=== PATIENT | female | born 1955 | race Caucasian/White ===

== ENCOUNTER 2023-03-30 07:05 | Outpatient (OUT) | payer MEDICARE, OTHER, SELFPAY ==
[2023-03-30 07:26] LABS: Basophils Absolute Auto 0.1 10^3/uL (0.0-0.1); Basophils Percent Auto 1.4 % (0.2-2.0); Eosinophils Absolute Auto 0.3 10^3/uL (0.0-0.7); Eosinophils Percent Auto 6.4 % (0.9-7.0); Hematocrit 41.9 % (36.0-48.0); Immature Granulocytes Abs Auto 0.01 10^3/uL (0.00-0.03); Immature Granulocytes Pct Auto 0.2 % (0.0-0.5); Lymphocytes Absolute Auto 1.9 10^3/uL (1.2-3.8); Lymphocytes Percent Auto 38.6 % (20.5-60.0); Mean Corpuscular HGB Conc 33.4 g/dL (29.9-35.2); Mean Corpuscular Hemoglobin 30.5 pg (26.7-34.0); Mean Corpuscular Volume 91.3 fL (81.0-99.0); Mean Platelet Volume 9.6 fL (9.5-13.5); Monocytes Absolute Auto 0.4 10^3/uL (0.3-0.8); Monocytes Percent Auto 8.5 % (1.7-12.0); Neutrophils Absolute Auto 2.3 10^3/uL (1.4-6.5); Neutrophils Percent Auto 44.9 % (43.0-75.0); Platelet Count 255 10^3/uL (150-450); Red Blood Count 4.59 10^6/uL (4.20-5.40); Red Cell Distribution Width 13.6 % (11.0-15.0)
[2023-03-30 09:14] LABS: Microalbumin Urine Random 1.7 mg/dL (<=30.0)
[2023-03-30 09:33] LABS: Alanine Aminotransferase 41 U/L (14-59); Albumin Globulin Ratio 1.2; Albumin Level 4.3 g/dL (3.4-5.0); Alkaline Phosphatase 73 U/L (46-116); Anion Gap 14.3; Aspartate Amino Transferase 21 U/L (15-37); BUN Creatinine Ratio 14.6; Bilirubin Total 0.7 mg/dL (0.2-1.0); Carbon Dioxide 26.2 mmol/L (21.0-32.0); Chloride 103 mmol/L (98-107); Cholesterol 143 mg/dL (<=200); Estimated GFR (African America >60 (>=60); Estimated GFR (Non-African Ame >60 (>=60); Globulin 3.5 g/dL; Glucose 108 mg/dL (74-106); HDL Cholesterol 47 mg/dL (40-60); LDL Cholesterol Calculated 71.2 mg/dL; Potassium 4.5 mmol/L (3.5-5.1); Sodium 139 mmol/L (136-145); Total Protein 7.8 g/dL (6.4-8.2); Triglycerides 124 mg/dL (<=150); VLDL CHOLESTEROL 24.8 mg/dL
== END 2023-03-30 07:06 | disposition home or self-care (01) ==
LOC: LAB 07:11
PROVIDERS: PCP Family Medicine; Visit Provider Family Medicine
DX: I10 Essential (primary) hypertension (principal); E78.2 Mixed hyperlipidemia
CPT/HCPCS: 36415; 80053; 80061; 82043; 85025

== ENCOUNTER 2024-04-02 07:11 | Outpatient (OUT) | payer MEDICARE, OTHER, SELFPAY ==
[2024-04-02 07:40] LABS: Basophils Absolute Auto 0.1 10^3/uL (0.0-0.1); Basophils Percent Auto 1.3 % (0.2-2.0); Eosinophils Absolute Auto 0.3 10^3/uL (0.0-0.7); Eosinophils Percent Auto 6.9 % (0.9-7.0); Hematocrit 42.3 % (36.0-48.0); Hemoglobin 13.7 g/dL (12.0-16.0); Immature Granulocytes Abs Auto 0.01 10^3/uL (0.00-0.03); Immature Granulocytes Pct Auto 0.2 % (0.0-0.5); Lymphocytes Absolute Auto 1.5 10^3/uL (1.2-3.8); Mean Corpuscular HGB Conc 32.4 g/dL (29.9-35.2); Mean Corpuscular Hemoglobin 30.2 pg (26.7-34.0); Mean Corpuscular Volume 93.4 fL (81.0-99.0); Mean Platelet Volume 9.9 fL (9.5-13.5); Monocytes Absolute Auto 0.4 10^3/uL (0.3-0.8); Monocytes Percent Auto 7.9 % (1.7-12.0); Neutrophils Absolute Auto 2.4 10^3/uL (1.4-6.5); Neutrophils Percent Auto 51.7 % (43.0-75.0); Platelet Count 253 10^3/uL (150-450); Red Blood Count 4.53 10^6/uL (4.20-5.40); White Blood Count 4.7 10^3/uL (4.0-11.0)
[2024-04-02 08:48] LABS: Alanine Aminotransferase 44 U/L (14-59); Albumin Globulin Ratio 1.4; Alkaline Phosphatase 74 U/L (46-116); Anion Gap 12.9; Aspartate Amino Transferase 25 U/L (15-37); BUN Creatinine Ratio 12.8; Bilirubin Total 0.8 mg/dL (0.2-1.0); Calcium 8.8 mg/dL (8.5-10.1); Carbon Dioxide 26.6 mmol/L (21.0-32.0); Chloride 106 mmol/L (98-107); Chol HDL Ratio 3.2; Cholesterol 149 mg/dL (<=200); Estimated GFR (African America >60 (>=60); Estimated GFR (Non-African Ame 59 (>=60); Globulin 2.8 g/dL; Glucose 106 mg/dL (74-106); HDL Cholesterol 46 mg/dL (40-60); Potassium 4.5 mmol/L (3.5-5.1); Sodium 141 mmol/L (136-145); Total Protein 6.8 g/dL (6.4-8.2); Triglycerides 201 mg/dL (<=150); VLDL CHOLESTEROL 40.2 mg/dL
== END 2024-04-02 07:12 | disposition home or self-care (01) ==
LOC: LAB 07:15
PROVIDERS: PCP Family Medicine; Visit Provider Family Medicine
DX: I25.10 Atherosclerotic heart disease of native coronary artery without angina pectoris (principal); I10 Essential (primary) hypertension; E78.5 Hyperlipidemia, unspecified
CPT/HCPCS: 36415; 80053; 80061; 85025

== ENCOUNTER 2024-08-15 06:55 | Outpatient (OUT) | payer OTHER, SELFPAY ==
--- NOTE | 2024-08-15 07:00 | CA_ITS ---
Patient Name: SHERLEY REAVES MR#: [id number] : 1955 Exam Date: 08/15/2024 Ordering Doctor: LISA ACEVEDO CNP ECHOCARDIOGRAM REPORT PROCEDURE: CA ECHO DOPPLER COMPLETE INDICATIONS: Mitral and aortic valve insufficiency COMPARISON: None. DESCRIPTION: COMPLETE ECHOCARDIOGRAM Real-time transthoracic echocardiography with 2D, M-mode, spectral and color flow Doppler performed. QUALITY: Technical quality was good. LEFT VENTRICLE: Normal chamber size. Normal left ventricular wall thickness. LV EF: Global left ventricular systolic function is assessed but appears mildly reduced; visually estimated ejection fraction is 45 to 50%. No significant wall motion abnormalities DIASTOLIC: Grade I diastolic dysfunction. ATRIAL SEPTUM: Inadequately seen. LEFT ATRIUM: Normal chamber size. RIGHT ATRIUM: Mild dilatation. RIGHT VENTRICLE: Normal chamber size. Normal right ventricular systolic function. TRICUSPID VALVE: Normal mobility and thickness. No stenosis with mild regurgitation. No evidence of pulmonary hypertension. RVSP 24mmHg MITRAL VALVE: Normal mobility and thickness. No evidence of mitral valve stenosis. There is no mitral annular calcification. Mild mitral regurgitation. AORTIC VALVE: Normal trileaflet appearance. No visible sclerosis. Normal leaflet mobility. No evidence of aortic valve stenosis. Trivial aortic regurgitation. AORTIC ROOT: Normal diameter and appearance. PULMONIC VALVE: Normal thickness and mobility. No stenosis. No regurgitation. PERICARDIUM: No evidence of pericardial effusion. IVC: Collapses with inspirations. Normal size. CONCLUSION: 1. Global left ventricular systolic function is difficult to assess but appears mildly reduced; visually estimated ejection fraction is 45 to 50% 2. Normal right ventricular size and systolic function 3. Mild diastolic dysfunction 4. The right atrium is mildly dilated 5. Mild tricuspid regurgitation 6. Mild mitral regurgitation Adult Echocardiography Procedure Report Left Ventricle LVEDD (3.7 - 5.6 cm): 4.50 cm LVESD (2.2 - 4.0 cm): 3.30 cm LVIVS thickness (0.6 - 1.2 cm): 1.00 cm LVPW thickness (0.5 - 1.0 cm): 0.93 cm e': 0.05 m/s E - e': 10.58 LVOT Max Gradient: 2.91 mm[Hg] LVOT Area (cm2): 0.85 m/s Peak Velocity (LVOT): 0.85 m/s Mean Velocity (LVOT): 0.55 m/s LVOT Diameter 2.01 cm Left Atrium LA Volume Index (2D A2C): 30.64 ml/m2 Left Atrium Systolic Dimension: 3.85 cm Mitral Valve MV E to A Ratio: 0.70 Mitral Valve A-Wave Peak Velocity: 0.81 m/s Mitral Valve E-Wave Peak Velocity: 0.57 m/s Right Ventricle RV Internal Diastolic Dimension: 3.48 cm Aorta AO Root Diam: 3.17 cm Ascending Ao Diam: 3.33 cm Aortic Valve AoV Area (Peak Zain): 1.89 cm2, 1.89 cm2 AoV Area (VTI): 1.93 cm2, 1.93 cm2 Peak Velocity(Antegrade Flow): 1.43 m/s Peak Gradient(Antegrade Flow): 8.20 mm[Hg] Mean Velocity(Antegrade Flow): 0.97 m/s Mean Gradient(Antegrade Flow): 4.30 mm[Hg] Velocity Time Integral: 32.79 cm Tricuspid Valve Peak Velocity (Regurgitant Flow): 1.78 m/s, 1.75 m/s, 2.31 m/s Pulmonic Valve Peak Velocity: 0.93 m/s Peak Gradient: 3.58 mm[Hg], 3.36 mm[Hg] Right Atrium Right Atrium Systolic Pressure: 50.70 ml, 50.70 ml Dictated by: Maykel Story M.D. on 08/15/2024 at 10:11 Approved by: Maykel Story M.D. on 08/15/2024 at 10:15
== END 2024-08-15 06:56 | disposition home or self-care (01) ==
LOC: CARD 06:56
PROVIDERS: PCP Family Medicine; Visit Provider Nurse Practitioner Family
DX: I35.1 Nonrheumatic aortic (valve) insufficiency (principal)
CPT/HCPCS: 93306

== ENCOUNTER 2024-10-03 06:56 | Outpatient (OUT) | payer OTHER, SELFPAY ==
--- NOTE | 2024-10-03 | PCN_ITS ---
CARDIAC STRESS TEST Requesting Physician: Procedure Date: 10/03/2024 This was a cardiac stress test performed at the [facility] on 10/03/2024. Informed consent was obtained. The patient was attached to electrocardiographic monitoring. Intravenous line was secured. Resting vital signs were obtained. The patient exercised on the treadmill according to the Kameron protocol for 6 minutes and 49 seconds. The patient reached Stage 3 of the Kameron protocol and achieved 9.4 METS. Resting heart rate was 108 BPM and maximum heart rate was 173 BPM, representing 116% of maximum predicted heart rate. Resting blood pressure was 170/90 and maximum blood pressure 196/98. Cardiolite was injected at peak exercise. The patient then went on to obtain myocardial perfusion imaging. Resting heart rate showed sinus tachycardia with no ischemic ST changes. ECG during and after exercise showed sinus tachycardia with no ischemic ST changes. Rare PVCs were noted. Final ECG was comparable to baseline. SUMMARY OF THE FINDINGS: 1. No evidence of ischemic ST changes seen on treadmill exercise. 2. Resting hypertension and tachycardia and exaggerated blood pressure response to exercise. 3. 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 4. Myocardial perfusion imaging will be reported separately. ACOSTAD
--- NOTE | 2024-10-03 | NM_ITS ---
Patient Name: SHERLEY REAVES MR#: [id number] : 1955 Exam Date: 10/03/2024 Ordering Doctor: LISA ACEVEDO CNP RADIOLOGY REPORT PROCEDURE: NM ADILENE PERF SPECT REST STR COMPARISON: None. INDICATIONS: CORONARY ARTERY DISEASE TECHNIQUE: Exam Description: Stress/Rest one day protocol gated SPECT Rest Imagin.9 mCi Tc-99m Cardiolite IV on 10/03/2024 Stress Imaging 30.6 mCi Tc-99m Cardiolite IV on 10/03/2024 Exercise Protocol: Kameron Heart Rate (bpm): Rest: 108 Max: 173 PMHR: 116 Blood Pressure: Rest: 170/97 Max: 196/98 Exercise Time: Minutes: 6 Seconds: 49 Stage Reached: Stage: 3 Mets 9.4 Symptoms: Rest and peak stress ECG findings were pending and the exercise portion of the study was pending per attending physician Dr. ZHU . For more details, please see separate cardiac stress test report. FINDINGS: QUALITY OF STUDY: Excellent PERFUSION DEFECT: None WALL MOTION: Normal wall motion LV SIZE: 64 mL. TID / TCD: 0.7 LVEF: Calculated EF 70%. SUMMARY: Myocardial perfusion imaging study is normal CONCLUSION: 1. Myocardial perfusion is normal 2. Global left ventricular systolic function is normal 3. No evidence of transient ischemic dilatation Dictated by: Makyel Story M.D. on 10/03/2024 at 14:52 Approved by: Maykel Story M.D. on 10/03/2024 at 14:54
--- OUTSIDE RECORDS SUMMARY | 2024-10-03 06:58 | XMS_ITS | CCD ---
Author Organization [facility] Care Team Providers Care Reserve Officer Name Role Phone PHYSICIAN, DEFAULT Unavailable Unavailable PHYSICIAN, DEFAULT Unavailable Unavailable ALIZA QUIROS Unavailable Unavailable BANDAR, DR ALIZA Galvan Admitting Unavailable BANDAR, DR ALIZA Galvan Primary Care Unavailable BANDAR, DR ALIZA Galvan Attending Unavailable DR MYNOR STORY Consulting Unavailable BANDAR, DR ALIZA Galvan Consulting Unavailable DR ALIZA QUIROS Primary Care Unavailable LISA ACEVEDO Admitting Unavailable LISA ACEVEDO Consulting Unavailable LISA ACEVEDO Attending Unavailable Aliza Quiros Unavailable LISA ACEVEDO Attending Unavailable Allergies Allergy Classification Reported Allergen(s) Allergy Type Date of Onset Reaction(s) Facility (1 source) 48780,00; Translations: [48617,00] Propensity to adverse reactions (disorder) 2 [facility] Repository (2 sources) patient allergy list reviewed by nurse or physicia Propensity to adverse reactions 9 Comment:Done [facility] Other (2 sources) Allergies Reconciled Propensity to adverse reactions Unknown [facility] Other Medications Current Medications Medication Drug Class(es) Dates Sig (Normalized) Sig (Original) Aspir-81 (3 sources) Aspir-81 Active aspirin 81 mg delayed release oral tablet (1 source) Platelet Aggregation Inhibitor, Nonsteroidal Anti-inflammatory Drug Start: 02-14-2024 take 81 mg by mouth once daily Aspirin Active 81 MG PO Daily February 14, 2024 12:00am atorvastatin 20 mg oral tablet (4 sources) HMG-CoA Reductase Inhibitor Start: 02-14-2024 take 20 mg by mouth once daily Atorvastatin Active 20 MG PO Daily February 14, 2024 12:00am take 1 tablet by cata every twenty-four hours Atorvastatin Calcium 20 MG 1 tablet Oral ly Once a day for 90 days Active lisinopril 5 mg oral tablet (4 sources) Angiotensin Converting Enzyme Inhibitor Start: 02-14-2024 take 5 mg by mouth once daily Lisinopril Active 5 MG PO Daily February 14, 2024 12:00am take 1 tablet by cata th every twenty-four hours Lisinopril 5 MG 1 tablet Orally Once a day for 90 days Active metoprolol tartrate 25 mg oral tablet (4 sources) beta-Adrenergic León Start: 02-14-2024 take 25 mg by mouth twice daily Metoprolol Tartrate Active 25 MG PO Twice daily February 14, 2024 12:00am take 1 tablet by cata th every twelve hours Metoprolol Tartrate 25 MG 1 tablet with food Orally Twice a day for 90 days Active Problems Active Problems Problem Classification Problem Date Documented Date Episodic/Chronic Coronary atherosclerosis and other heart disease (13 sources) Atherosclerotic heart disease of [place] coronary artery without angina pectoris; Translations: [Atherosclerosis of coronary artery without angina pectoris] Onset: 09-11-2013 Chronic Disorders of lipid metabolism (11 sources) Mixed hyperlipidemia; Translations: [Mixed hyperlipidemia] Chronic Essential hypertension (6 sources) Benign hypertension; Translations: [Essential (primary) hypertension] Chronic Heart valve disorders (2 sources) Nonrheumatic aortic (valve) insufficiency; Translations: [Nonrheumatic aortic (valve) insufficiency] Onset: 10-04-2023 Chronic Other circulatory disease (5 sources) Elevated blood-pressure reading without diagnosis of hypertension; Translations: [Elevated blood-pressure reading, without diagnosis of hypertension] Episodic Other nutritional; endocrine; and metabolic disorders (2 sources) Body mass index 25-29 - overweight; Translations: [Body mass index (BMI) 26.0-26.9, adult] Episodic Other screening for suspected conditions (not mental disorders or infectious disease) (6 sources) Encounter for screening mammogram for malignant neoplasm of breast; Translations: [Encounter for screening for malignant neoplasm of colon] Onset: 01-20-2015 Episodic Residual codes; unclassified (2 sources) Family history of diabetes mellitus; Translations: [Family history of diabetes mellitus] Episodic Spondylosis; intervertebral disc disorders; other back problems (5 sources) Low back pain; Translations: [Lumbar pain] Episodic Past or Other Problems Problem Classification Problem Date Documented Da te Episodic/Chronic Inflammation; infection of eye (except that caused by tuberculosis or sexually transmitteddisease) (2 sources) Iridocyclitis; Translations: [Unspecified iridocyclitis] Onset: 09-11-2013 Episodic Other skin disorders (2 sources) Inflamed seborrheic keratosis; Translations: [Inflamed seborrheic keratosis] Onset: 09-11-2013 Episodic Results Test Name Value Interpretation Reference Range Facil ity 36on 09-20-2024 36 Regarding echo result from 08/15/2024: Lisa Acevedo, NIMA Apodaca MA Please let her know her ECHO showed a mild reduction in the pumping function of her heart. Would like to order a stress test to check the blood flow to her heart to make sure this isn't causing it. If she can do a treadmill nuclear that would be ideal, if not, then can do lexiscan. Follow-up with Dr. Story or myself after her stress test. Thanks! Spoke with patient and informed her of message per Sherie. She agrees to have nuclear treadmill stress test. Order faxed to [facility]. I asked patient to call me to reschedule her apt with Dr. Story if stress test cannot be completed prior to that. She verbalized understanding. [facility] Office Visiton 10-04-2023 Follow-up visit [id number] Sherley Arteaga 1955 F Date Provider Department Center 10/04/2023 LISA ESCOBAR RAE[facility] Family History Problem Relation Age of Onset Coronary artery disease Mother Family Status - Relation Status Age at Mother Level of Service:00176 NM OFFICE/OUTPATIENT ESTABLISHED LOW MDM 20 MIN Reason for Visit and Comments: Coronary Artery Disease [187] Hypertension [129247] Hyperlipidemia [182] [facility] CBC AUTO DIFFon 04-02-2022 BASO # 0.1 103/ul Normal 0.0-0.1 [facility] Comment on above: Performed By: #### C BC #### [facility] [address] [address] [address] Berenice Sanders Basophils/100 WBC (Bld) 1.6 % Normal 0.2-2.0 [facility] Comment on above: Performed By: #### C BC #### [facility] [address] [place] [address] Dr. Berenice Sanders EO # 0.2 103/ul Normal 0.0-0.7 [facility] Comment on above: Performed By: #### C BC #### [facility] [address] [place] [address] Dr. Berenice Sanders Eosinophils/100 WBC (Bld) 5.1 % Normal 0.9-7.0 [facility] Comment on above: Performed By: #### C BC #### [facility] [address] [place] [address] Dr. Berenice Sanders Erythrocyte distribution width (RBC) [Ratio] 12.9 % Normal 11.0-15.0 [facility] Comment on above: Performed By: #### C BC #### [facility] [address] [place] [address] Dr. Berenice Sanders Hematocrit (Bld) [Volume fraction] 41.7 % Normal 36.0-48.0 [facility] Comment on above: Performed By: #### C BC #### [facility] [address] [place] [address] Dr. Berenice Sanders Hemoglobin (Bld) [Mass/Vol] 13.5 g/dL Normal 12.0-16.0 [facility] Comment on above: Performed By: #### C BC #### [facility] [address] [place] [address] Dr. Berenice Sanders IG # 0.01 10e3/ul Normal 0.00-0.03 [facility] Comment on above: Performed By: #### C BC #### [facility] [address] [place] [address] Dr. Berenice Sanders IG % 0.2 % Normal 0.0-0.5 [facility] Comment on above: Performed By: #### C BC #### [facility] [address] [place] [address] Dr. Berenice Sanders LYMPH # 1.9 103/ul Normal 1.2-3.8 [facility] Comment on above: Performed By: #### C BC #### [facility] [address] [place] [address] Dr. Berenice Sanders Lymphocytes/100 WBC (Bld) 42.9 % Normal 20.5-60.0 [facility] Comment on above: Performed By: #### C BC #### [facility] [address] [place] [address] Dr. Berenice Sanders MANUAL DIFF REQ NO Normal [facility] Comment on above: Performed By: #### C BC #### [facility] [address] [place] [address] Dr. Berenice Sanders MCH (RBC) [Entitic mass] 30.4 pg Normal 26.7-34.0 [facility] Comment on above: Performed By: #### C BC #### [facility] [address] [place] [address] Dr. Berenice Sanders MCHC (RBC) [Mass/Vol] 32.4 g/dL Normal 29.9-35.2 [facility] Comment on above: Performed By: #### C BC #### [facility] [address] [place] [address] Dr. Berenice Sanders MCV (RBC) [Entitic vol] 93.9 fL Normal 81.0-99.0 [facility] Comment on above: Performed By: #### C BC #### [facility] [address] [place] [address] Dr. Berenice Sanders MONO # 0.4 103/ul Normal 0.3-0.8 [facility] Comment on above: Performed By: #### C BC #### [facility] [address] [place] [address] Dr. Berenice Sanders Monocytes/100 WBC (Bld) 7.8 % Normal 1.7-12.0 [facility] Comment on above: Performed By: #### C BC #### [facility] [address] [place] [address] Dr. Berenice Sanders NEUT # 1.9 103/ul Normal 1.4-6.5 [facility] Comment on above: Performed By: #### C BC #### [facility] [address] [place] [address] Dr. Berenice Sanders Neutrophils/100 WBC (Bld) 42.4 % Critically low 43.0-75.0 [facility] Comment on above: Performed By: #### C BC #### [facility] [address] [place] [address] Dr. Berenice Sanders Platelet mean volume (Bld) [Entitic vol] 9.8 fL Normal 9.5-13.5 [facility] Comment on above: Performed By: #### C BC #### [facility] [address] [place] [address] Dr. Berenice Sanders PLT 268 103/ul Normal 150-450 [facility] Comment on above: Performed By: #### C BC #### [facility] [address] [place] [address] Dr. Berenice Sanders RBC 4.44 106/ul Normal 4.20-5.40 [facility] Comment on above: Performed By: #### C BC #### [facility] [address] [place] [address] Dr. Berenice Sanders WBC 4.5 103/ul Normal 4.0-11.0 [facility] Comment on above: Performed By: #### C BC #### [facility] [address] [place] [address] Dr. Berenice Sanders LIPID PROFILEon 04-02-2022 CHOL-HDL RATIO NORM SEE BELOW Normal [facility] Comment on above: Result Comment: 3.3 - 4.4 LOW RISK 4.4 - 7.1 AVERAGE RISK 7.1 - 11.0 MODERATE RISK >11.0 HIGH RISK Performed By: #### C MP, LIPID #### [facility] [address] [place] [address] Dr. Berenice Sanders Cholesterol [Mass/Vol] 140 mg/dL Normal <=200 [facility] Comment on above: Performed By: #### C MP, LIPID #### [facility] [address] [place] [address] Dr. Berenice Sanders Cholesterol in HDL [Mass/Vol] 43 mg/dL Normal 40-60 [facility] Comment on above: Performed By: #### C MP, LIPID #### [facility] [address] [address] [address] Berenice Sanders Cholesterol in LDL [Mass/Vol] 78.0 mg/dL Normal [facility] Comment on above: Performed By: #### C MP, LIPID #### [facility] [address] [address] [address] Berenice Sanders Cholesterol.total/ Cholesterol in HDL [Mass ratio] 3.3 {ratio} Normal [facility] Comment on above: Performed By: #### C MP, LIPID #### [facility] [address] [place] [address] Dr. Berenice Sanders HDL NORMAL > or = 60 mg/dl - LOW CARDIOVASCULAR RISK <40 mg/dl - HIGH CARDIOVASCULAR RISK Normal [facility] Comment on above: Performed By: #### C MP, LIPID #### [facility] [address] [place] [address] Dr. Berenice Sanders LDL CALC NORMAL SEE BELOW Normal [facility] Comment on above: Result Comment: <100 mg/dl OPTIMAL 100 - 129 mg/dl NEAR OR ABOVE OPTIMAL 130 - 159 mg/dl BORDERLINE HIGH 160 - 189 mg/dl HIGH >190 mg/dl VERY HIGH Performed By: #### C MP, LIPID #### [facility] [address] [place] [address] Dr. Berenice Sanders Triglyceride [Mass/Vol] 95 mg/dL Normal <=150 [facility] Comment on above: Performed By: #### C MP, LIPID #### [facility] [address] [place] [address] Dr. Berenice Sanders VLDL CALC 19.0 mg/dL Normal [facility] Comment on above: Performed By: #### C MP, LIPID #### [facility] [address] [place] [address] Dr. Berenice Sanders PROF 14(COMP METB)on 022 Albumin [Mass/Vol] 4.0 g/dL Normal 3.4-5.0 [facility] Comment on above: Performed By: #### C MP, LIPID #### [facility] [address] [place] [address] Dr. Berenice Sanders Albumin/Globulin [Mass ratio] 1.3 {ratio} Normal [facility] Comment on above: Performed By: #### C MP, LIPID #### [facility] [address] [place] [address] Dr. Berenice Sanders ALP [Catalytic activity/Vol] 73 U/L Normal 46-116 [facility] Comment on above: Performed By: #### C MP, LIPID #### [facility] [address] [place] [address] Dr. Berenice Sanders ALT [Catalytic activity/Vol] 37 U/L Normal 14-59 [facility] Comment on above: Performed By: #### C MP, LIPID #### [facility] [address] [place] [address] Dr. Berenice Sanders Anion gap [Moles/Vol] 15.3 mmol/L Normal [facility] Comment on above: Performed By: #### C MP, LIPID #### [facility] [address] [place] [address] Dr. Berenice Sanders AST [Catalytic activity/Vol] 19 U/L Normal 15-37 [facility] Comment on above: Performed By: #### C MP, LIPID #### [facility] [address] [place] [address] Dr. Berenice Sanders Bilirubin [Mass/Vol] 0.6 mg/dL Normal 0.2-1.0 [facility] Comment on above: Performed By: #### C MP, LIPID #### [facility] [address] [place] [address] Dr. Berenice Sanders Calcium [Mass/Vol] 8.6 mg/dL Normal 8.5-10.1 [facility] Comment on above: Performed By: #### C MP, LIPID #### [facility] [address] [place] [address] Dr. Berenice Sanders Chloride [Moles/Vol] 105 mmol/L Normal 98-107 [facility] Comment on above: Performed By: #### C MP, LIPID #### [facility] [address] [place] [address] Dr. Berenice Sanders CO2 [Moles/Vol] 24.6 mmol/L Normal 21.0-32.[address] [facility] Comment on above: Performed By: #### C MP, LIPID #### [facility] [address] [address] [address] Berenice Sanders Creatinine [Mass/Vol] 1.00 mg/dL Normal 0.55-1.02 [facility] Comment on above: Performed By: #### C MP, LIPID #### [facility] [address] [address] [address] Berenice Sanders EGFR-AF SIERRA LEONEAN >60 Normal >=[address] [facility] Comment on above: Performed By: #### C MP, LIPID #### [facility] [address] [address] [address] Berenice Sanders EGFR-NON AF SIERRA LEONEAN 55 mL/min/1.73m2 Critically low >=60 [facility] Comment on above: Performed By: #### C MP, LIPID #### [facility] [address] [place] [address] Dr. Berenice Sanders Globulin (S) [Mass/Vol] 3.0 g/dL Normal [facility] Comment on above: Performed By: #### C MP, LIPID #### [facility] [address] [place] [address] Dr. Berenice Sanders Glucose [Mass/Vol] 108 mg/dL Critically high 74-106 T [facility] Comment on above: Performed By: #### C MP, LIPID #### [facility] [address] [address] [address] Berenice Sanders Potassium [Moles/Vol] 4.2 mmol/L Normal 3.5-5.1 [facility] Comment on above: Performed By: #### C MP, LIPID #### [facility] [address] [address] [address] Berenice Sanders Protein [Mass/Vol] 7.0 g/dL Normal 6.4-8.2 [facility] Comment on above: Performed By: #### C MP, LIPID #### [facility] [address] [address] [address] Berenice Sanders Sodium [Moles/Vol] 140 mmol/L Normal 136-145 [facility] Comment on above: Performed By: #### C MP, LIPID #### [facility] [address] [place] [address] Dr. Berenice Sanders Urea nitrogen [Mass/Vol] 17.0 mg/dL Normal 7.0-18.0 [facility] Comment on above: Performed By: #### C MP, LIPID #### [facility] [address] [place] [address] Dr. Berenice Sanders Urea nitrogen/Creatinin e [Mass ratio] 17.0 mg/mg Normal [facility] Comment on above: Performed By: #### C MP, LIPID #### [facility] [address] [place] [address] Dr. Berenice Sanders LIPID PROFILEon 09-28-2021 CHOL-HDL RATIO NORM SEE BELOW Normal [facility] Comment on above: Result Comment: 3.3 - 4.4 LOW RISK 4.4 - 7.1 AVERAGE RISK 7.1 - 11.0 MODERATE RISK >11.0 HIGH RISK Performed By: #### L IPID #### [facility] [address] [place] [address] Dr. Berenice Sanders Cholesterol [Mass/Vol] 144 mg/dL Normal <=200 [facility] Comment on above: Performed By: #### L IPID #### [facility] [address] [place] [address] Dr. Berenice Sanders Cholesterol in HDL [Mass/Vol] 48 mg/dL Normal [facility] Comment on above: Performed By: #### L IPID #### [facility] [address] [place] [address] Dr. Berenice Sanders Cholesterol in LDL [Mass/Vol] 63.0 mg/dL Normal [facility] Comment on above: Performed By: #### L IPID #### [facility] [address] [place] [address] Dr. Berenice Sanders Cholesterol.total/ Cholesterol in HDL [Mass ratio] 3.0 {ratio} Normal [facility] Comment on above: Performed By: #### L IPID #### [facility] [address] [address] [address] Berenice Sanders HDL NORMAL > or = 60 mg/dl - LOW CARDIOVASCULAR RISK <40 mg/dl - HIGH CARDIOVASCULAR RISK Normal [facility] Comment on above: Performed By: #### L IPID #### [facility] [address] [address] [address] Berenice Sanders LDL CALC NORMAL SEE BELOW Normal [facility] Comment on above: Result Comment: <100 mg/dl OPTIMAL 100 - 129 mg/dl NEAR OR ABOVE OPTIMAL 130 - 159 mg/dl BORDERLINE HIGH 160 - 189 mg/dl HIGH >190 mg/dl VERY HIGH Performed By: #### L IPID #### [facility] [address] [address] [address] Berenice Sanders Triglyceride [Mass/Vol] 165 mg/dL Critically high <=150 [facility] Comment on above: Performed By: #### L IPID #### [facility] [address] [address] [address] Berenice Sanders VLDL CALC 33.0 mg/dL Normal [facility] Comment on above: Performed By: #### L IPID #### [facility] [address] [address] [address] Berenice Sanders Vital Signs Date Time Vital Sign Value Performing Clinician Facility 02-17-2024 08:30-0400 Body height 165.1 cm [facility] 02-17-2024 08:30-0400 Body mass index (BMI) [Ratio] 27.3 kg/m2 [facility] 02-17-2024 08:30-0400 Body weight 74.38 kg [facility] 02-17-2024 08:30-0400 Diastolic blood pressure 83 mm[Hg] [facility] 02-17-2024 08:30-0400 Heart rate 81 /min [facility] 02-17-2024 08:30-0400 Systolic blood pressure 153 mm[Hg] [facility] 02-15-2023 08:30-0400 Body height 165.74 cm Aliza Quiros [facility] 02-15-2023 08:30-0400 Body mass index (BMI) [Ratio] 26.91 kg/m2 Aliza Quiros [facility] 02-15-2023 08:30-0400 Body weight 73.94 kg Aliza Quiros [facility] 02-15-2023 08:30-0400 Diastolic blood pressure 86 mm[Hg] Aliza Quiros [facility] 02-15-2023 08:30-0400 Systolic blood pressure 129 mm[Hg] Aliza Quiros Other [facility] Other Encounters Encounter Date Encounter Type Care Provider Facility Start: 02-17-2024 End: 02-17-2024 ambulatory [facility] Work Phone: Start: 02-17-2024 End: 02-17-2024 Patient encounter procedure [facility] Physician [facility] Work Phone: Start: 10-04-2023 End: 10-04-2023 ambulatory [facility] Start: 04-05-2023 End: 04-05-2023 ambulatory Aliza Quiros [facility] Start: 04-05-2023 Telephone encounter Aliza Quiros [facility] Start: 03-29-2023 End: 03-29-2023 ambulatory Aliza Quiros [facility] Start: 03-29-2023 Telephone encounter Aliza Quiros [facility] Start: 02-15-2023 End: 02-15-2023 ambulatory Aliza Quiros [facility] Start: 02-15-2023 Patient encounter procedure Aliza Quiros [facility] Start: 04-02-2022 End: 04-03-[address] ALIZA QUIROS Facility:[facility] Start: 02-12-2022 Adult health examination Gayla bhavana Bandar Other [facility] Other Start: 02-12-2022 Gynecological examination normal Alizaalberto Quiros Other [facility] Other Start: 09-28-2021 End: 09-29-[address] ALIZA QUIROS Facility:[facility] Start: 10-04-2017 End: 10-05-2017 Ambulatory DEFAULT PHYSICIAN Facility:[facility] Procedures Date Procedure Procedure Detail Performing Clinician Start: 01-12-2016 Screening mammography M isidro Bandar Other Start: 01-31-2014 General examination of patient Aliza Bandar Other Screening for malign ant neoplasm of breast Aliza Quiros Other Plan of Treatment Date Care Activity Detail Author Comprehensive metabo lic 2000 panel - Serum or Plasma [facility] enter MG Breast - bilateral Screening [facility] Immunizations Immunization Date Immunization Notes Care Provider Fa cility 04-06-2022 influenza virus vaccine, split virus (incl. purified surface antigen) Aliza Quiros Other [facility] Other 04-06-2022 influenza virus vaccine, unspecified formulation [facility] 04-06-2022 Prevnar 20 Aliza Quiros Other [facility] 08-06-2021 influenza virus vaccine, split virus (incl. purified surface antigen) Aliza Quiros Other [facility] Other 08-06-2021 influenza virus vaccine, unspecified formulation [facility] 07-29-2020 pneumococcal polysaccharide vaccine, 23 valent Aliza Quiros Other [facility] 04-15-2020 influenza virus vaccine, split virus (incl. purified surface antigen) Aliza Quiros Other [facility] Other 04-15-2020 influenza virus vaccine, unspecified formulation [facility] 01-17-2017 pneumococcal conjuga te vaccine, 13 valent Aliza Bandar Other [facility] 01-17-2017 pneumococcal Conjuga te, unspecified formulation; Translations: [Need for prophylactic vaccination against Streptococcus pneumoniae (pneumococcus)] Aliza Quiros Other [facility] Other Payers Date Payer Category Payer Medicare [id number] 1961 Medicare [id number] 1961 Unknown [id number] 1955 Unknown [id number] 1955 Unknown [id number] Unknown Social History Date Type Detail Facility Unknown if ever smoked [facility] Sex Assigned At Sex Assigned At Bir th [facility] Start: 1955 Sex Assigned At Female F [facility] Progress note 10-04-2023 Note Date & Type Note Facility 10-04-[address] [facility] SUBJECTIVE Chief Complaint Patient presents with Coronary Artery Disease Hypertension Hyperlipidemia Sherley Arteaga is a 68 y.o. female here for follow-up. HPI PMHx: CAD s/p BMS to LAD, mild dz RCA per cath 09/2011, HTN, HLD Patient here for 1 year follow up CAD, hypertension, and dyslipidemia. Had routine labs in Mar 2023. Dr. Story stopped Plavix at visit last year. She denies chest pain, SOB, palpitations, and lightheadedness/syncope. Patient does check BP at home a few times a week and it's always within normal limits. She denies any changes since last seen. In the winter she is more sedantary. Denies c/o CP, dyspnea, orthopnea, PND, LE edema, dizziness/LH, palpitations, syncope. Patient Active Problem List Diagnosis Aortic valve disorder Coronary atherosclerosis Essential hypertension Gastroesophageal reflux disease Hyperlipidemia Primary cardiomyopathy (CMS/HCC) Past Medical History: Diagnosis Date Cardiomyopathy (CMS/HCC) Coronary artery disease GERD (gastroesophageal reflux disease) Heart valve disease Hyperlipidemia Hypertension Family History Problem Relation Name Age of Onset Coronary artery disease Mother Social History Tobacco Use Smoking status: Former Types: Cigarettes Smokeless tobacco: Never Substance Use Topics Alcohol use: Yes Comment: occasional No Known Allergies Review of Systems Constitutional: Negative for chills, decreased appetite, fever, malaise/fatigue and weight gain. Cardiovascular: Negative for chest pain, dyspnea on exertion, irregular heartbeat, leg swelling, near-syncope, orthopnea, palpitations, paroxysmal nocturnal dyspnea and syncope. Hematologic/Lymphatic: Negative for bleeding problem. Does not bruise/bleed easily. OBJECTIVE Visit Vitals BP 150/86 (BP Location: Right arm, Patient Position: Sitting) Pulse 83 Ht 1.676 m (5' 6 ) Wt 77.1 kg (170 lb) SpO2 98% BMI 27.44 kg/m??? Smoking Status Former BSA 1.89 m??? Medications: Current Outpatient Medications: aspirin 81 mg chewable tablet, in the morning., Disp: , Rfl: atorvastatin (Lipitor) 20 mg tablet, atorvastatin 20 mg tablet TAKE 1 TABLET BY MOUTH EVERY DAY, Disp: , Rfl: co-enzyme Q-10 30 mg capsule, Take 30 mg by mouth in the morning., Disp: , Rfl: lisinopril 5 mg tablet, lisinopril 5 mg tablet TAKE 1 TABLET BY MOUTH DAILY, Disp: , Rfl: metoprolol tartrate (Lopressor) 25 mg tablet, metoprolol tartrate 25 mg tablet TAKE 1 TABLET BY MOUTH TWICE DAILY, Disp: , Rfl: nitroglycerin (Nitrostat) 0.4 mg SL tablet, PLACE 1 TABLET (0.4 MG) BY SUBLINGUAL ROUTE AT 1ST SIGN OF ATTACK; MAY REPEAT EVERY 5 MINUTES UP TO 3 TABS; IF NO RELIEF SEEK MEDICAL HELP, Disp: , Rfl: Physical Exam Vitals reviewed. Constitutional: Appearance: Normal appearance. She is normal weight. HENT: Head: Normocephalic and atraumatic. Right Ear: External ear normal. Left Ear: External ear normal. Eyes: Extraocular Movements: Extraocular movements intact. Conjunctiva/sclera: Conjunctivae normal. Pupils: Pupils are equal, round, and reactive to light. Neck: Vascular: No carotid bruit. Cardiovascular: Rate and Rhythm: Normal rate and regular rhythm. Pulses: Normal pulses. Heart sounds: Normal heart sounds. Pulmonary: Effort: Pulmonary effort is normal. Breath sounds: Normal breath sounds. Abdominal: General: Bowel sounds are normal. Palpations: Abdomen is soft. Musculoskeletal: Cervical back: Neck supple. Right lower leg: No edema. Left lower leg: No edema. Skin: General: Skin is warm and dry. Neurological: General: No focal deficit present. Mental Status: She is alert and oriented to person, place, and time. Psychiatric: Mood and Affect: Mood normal. Behavior: Behavior normal. Thought Content: Thought content normal. Judgment: Judgment normal. Labs: 03/30/2023 CBC - unremarkable Cr 0.89, BUN 13, K 4.5, Na 139, eGFR >60, AST 21, ALT 41 Chol 143, trig 124, LDL 71, HDL 47 Lipid panel 03/10/20: Chol 137, trig 136, HDL 42, LDL 68 Testing/Procedures: ECHO 08/30/19: EF 55-60%, no RWMA, grade 1 DD, normal right sided pressures, mild TR Cardiovascular Laboratory Report 09/30/2011 FINAL IMPRESSIONS: 1. Severe stenosis of the left anterior descending coronary artery successfully treated by balloon angioplasty and bare-metal stent placement. 2. Mild disease of the right coronary artery. 3. Normal global left ventricular systolic function by non-invasive imaging. RECOMMENDATIONS: 1. Aspirin 81 mg lifelong. 2. Plavix 75 mg daily for a minimum of 1 month, preferably long-term. 3. Aggressive cardiovascular risk factor modification. 4. Optimization of medical management; the patient will be started on a beta-león and a statin, with follow up liver function tests and a fasting lipid profile in 6 weeks. 5. Phase 2 cardiac rehabilitation in [place]. 6. Follow up wi (more content not included)... [facility] Progress note 10-04-2023 Note Date & Type Note Facility 10-04-2023 Note Patient here for 1 y ear follow up CAD, hypertension, and dyslipidemia. Had routine labs in Mar 2023. Dr. Story stopped Plavix at visit last year. She denies chest pain, SOB, palpitations, and lightheadedness/syncope. Patient does check BP at home a few times a week and it's always within normal limits. Review of Systems All other systems reviewed and are negative. [facility] Evaluation note 02-15-2023 Note Date & Type Note Facility 02-15-2023 Evaluation note Encounter Date Diagnosis Assessment Notes Feb, Medicare annual wellness visit, subsequent (ICD-10 - Z00.00) Personalized health advice was given to the beneficiary including a written plan for screenings discussed and provided. Advanced care planning reviewed and/or information given as requested. Additional counseling was provided here today in regards to, [ ]. The above visit was performed by [ ], under direct supervision of [ ]. Document reviewed and amended by provider signed below. Feb, HTN (hypertension), benign (ICD-10 - I10) Feb, Screening mammogram for breast cancer (ICD-10 - Z12.31) Feb, Mixed hyperlipidemia (ICD-10 - E78.2) Feb, Screening for colon cancer (ICD-10 - Z12.11) [facility] Evaluation note Note Date & Type Note Facility Evaluation note No Information [employer] Other Evaluation note Note Date & Type Note Facility Evaluation note Diagnosis Onset Date CAD in [place] artery acute HTN (hypertension), benign a cute Hyperlipidemia acute Screening mammogram for breast cancer acute [facility] Work Phone: History general Narrative - Reported Note Date & Type Note Facility History general Narrative - Reported Type Medical History CAD in [place] artery Medical History Elevated blood press ure (not hypertension) Medical History Hyperlipidemia Medical History Lumbar pain Surgical History TONSILLECTOMY AND ADENOIDECTOMY 2006 Surgical History ENDOMETRIAL ABLATION 2003 Surgical History D&C 2003 Surgical History STENT LAD 2012 Hospitalization History SEE SURGICAL HX [facility] Summary Purpose Family History No Family History Records Found Relationship Condition Age at Onset Recorded Date/T tasia daughter Hypertension Unknown father Arthritis Unknown Unknown mother Unknown Diabetes mellitus Unknown Advance Directives No Advanced Directives Records Found Advance Directive Response Recorded Date/ Time Advance Directives No February 16 24 8:24am Chief Complaint and Reason for Visit Chief Complaint wellness Reason for Visit CAD in [place] artery HTN (hypertension), benign Hyperlipidemia Screening mammogram for breast cancer Additional Source Comments INFORMATION SOURCE (unrecogn ized section and content) DATE CREATED AUTHOR 01/27/2018 [facility] DATE CREATED AUTHOR AUTHOR'S ORGANIZ ATION 04/04/2022 [facility] DATE CREATED AUTHOR AUTHOR'S ORGANIZ ATION 09/23/[address] [facility] REASON FOR VISIT (unrecogniz ed section and content) [facility] Care Teams (unrecognized sec tion and content) Team Status: Active Member Role Status Dates Aliza Quiros MD Primary Care Provider Active Team Status: Inactive Member Role Status Dates Aliza Quiros MD Primary Care Provide r, Attending Provider Active Start: February 17, 2024 End: February 17, 2024 Goals (unrecognized section and content) Goals may be documented in a n alternate section FOR RECORDS PERTAINING TO PATIENTS WHO ARE OR HAVE BEEN ENROLLED IN A CHEMICAL DEPENDENCY/SUBSTANCEABUSE PROGRAM, SOME INFORMATION MAY BE OMITTED. This clinical summary was aggregated from multiple sources. Caution should be exercised in using it in the provision of clinical care. This summary normalizes information from multiple sources, and as a consequence, information in this document may materially change the coding, format and clinical context of patient data. In addition, data may be omitted in some cases. CLINICAL DECISIONS SHOULD BE BASED ON THE PRIMARY CLINICAL RECORDS. [employer] provides no warranty or guarantee of the accuracy or completeness of information in this document.
--- NOTE | 2024-10-03 11:00 | PC.NURSE ---
Nursing Note Cardiac Stress Test Reviewed: Medication, allergies and patient history reviewed. Stress Test: [ x] Patient tolerated stress test well. [ ] Patient unable to tolerate walking on treadmill. Switched to Lexiscan stress test. [x ] No chest pain noted per patient [ ] Chest pain that resolved prior to leaving stress lab. [ ] No dyspnea noted. [ x] Dyspnea that resolved prior to leaving stress lab. [ x] Patient left stress lab asymptomatic and hemodynamically stable. [ ] Patient taken to the Emergency Room due to non-resolving symptoms following stress test. [ x] Patient achieved target heart rate. [ ] Patient unable to achieve target heart rate. [ ] Aminophylline administered as reversal agent to Lexiscan (Regadenoson). [ ] Nitro administered. Nursing Comments:Pt had Cardiolite stress test done. Tolerated well. Pt had no CP only SOB that resolved with rest. Pt ambulated to cafeteria for breakfast piror to second set of images.
== END 2024-10-03 06:57 | disposition home or self-care (01) ==
LOC: NM 06:56
PROVIDERS: PCP Family Medicine; Visit Provider Nurse Practitioner Family
DX: I25.10 Atherosclerotic heart disease of native coronary artery without angina pectoris (principal); R93.1 Abnormal findings on diagnostic imaging of heart and coronary circulation
CPT/HCPCS: 78452; 93017; A9500

== ENCOUNTER 2025-04-03 06:50 | Outpatient (OUT) | payer OTHER, SELFPAY ==
--- OUTSIDE RECORDS SUMMARY | 2025-04-03 06:57 | XMS_ITS | CCD ---
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 Name Role Phone PHYSICIAN, DEFAULT Unavailable Unavailable PHYSICIAN, DEFAULT Unavailable Unavailable ALIZA QUIROS Unavailable Unavailable CHULA, DR ALIZA Galvan Admitting Unavailable CHULA, DR ALIZA Galvan Primary Care Unavailable CHULA, DR ALIZA Galvan Attending Unavailable DR MYNOR STORY Consulting Unavailable DR ALIZA QUIROS Consulting Unavailable DR ALIZA QUIROS Primary Care Unavailable LISA ACEVEDO Admitting Unavailable LISA ACEVEDO Consulting Unavailable LISA ACEVEDO Attending Unavailable Aliza Quiros Unavailable MYNOR STORY Attending Unavailable Aliza Quiros MD Primary Care Provider Aliza Quiros MD Attending Provider [phone] Allergies Allergy Classification Reported Allergen(s) Allergy Type Date of Onset Reaction(s) Facility (1 source) 96643,00; Translations: [93637,00] Propensity to adverse reactions (disorder) 2 [facility] Repository (2 sources) patient allergy list reviewed by nurse or physicia Propensity to adverse reactions 9 Comment:Done [employer] Other (2 sources) Allergies Reconciled Propensity to adverse reactions Unknown [employer] Other Medications Current Medications Medication Drug Class(es) Dates Sig (Normalized) Sig (Original) Aspir-81 (3 sources) Aspir-81 Active aspirin 81 mg delayed release oral tablet (2 sources) Platelet Aggregation Inhibitor, Nonsteroidal Anti-inflammatory Drug Start: 02-14-2024 take 1 tablet by mouth once daily Aspirin 81 mg tablet,delayed release (DR/EC) Active 81 MG PO Daily February 14, 2024 12:00am Complies with drug therapy atorvastatin 20 mg oral tablet (7 sources) HMG-CoA Reductase Inhibitor Start: 02-14-2024 End: 02-05-2025 take 1 tablet by mouth once daily Atorvastatin 20 mg tablet Active 20 MG PO Daily February 05, 2025 1:16pm Complies with drug therapy take 1 tablet by cata th every twenty-four hours Atorvastatin Calcium 20 MG 1 tablet Oral ly Once a day for 90 days Active lisinopril 5 mg oral tablet (7 sources) Angiotensin Converting Enzyme Inhibitor Start: 02-14-2024 End: 02-05-2025 take 1 tablet by mouth once daily Lisinopril 5 mg tablet Active 5 MG PO Daily February 05, 2025 1:16pm Complies with drug therapy take 1 tablet by cata th every twenty-four hours Lisinopril 5 MG 1 tablet Orally Once a day for 90 days Active metoprolol tartrate 25 mg oral tablet (7 sources) beta-Adrenergic León Start: 02-14-2024 End: 02-05-2025 take 1 tablet by mouth twice daily Metoprolol Tartrate 25 mg tablet Active 25 MG PO Twice daily February 05, 2025 1:16pm Complies with drug therapy take 1 tablet by cata th every twelve hours Metoprolol Tartrate 25 MG 1 tablet with food Orally Twice a day for 90 days Active Problems Active Problems Problem Classification Problem Date Documented Date Episodic/Chronic Coronary atherosclerosis and other heart disease (17 sources) Atherosclerotic heart disease of [place] coronary artery without angina pectoris; Translations: [Atherosclerosis of coronary artery without angina pectoris] Onset: 09-11-2013 Chronic Disorders of lipid metabolism (13 sources) Mixed hyperlipidemia; Translations: [Mixed hyperlipidemia] Chronic Essential hypertension (10 sources) Benign hypertension; Translations: [Essential (primary) hypertension] Onset: 09-20-2022 Chronic Heart valve disorders (2 sources) Nonrheumatic aortic (valve) insufficiency; Translations: [Nonrheumatic aortic (valve) insufficiency] Onset: 10-09-2024 Chronic Other circulatory disease (5 sources) Elevated blood-pressure reading without diagnosis of hypertension; Translations: [Elevated blood-pressure reading, without diagnosis of hypertension] Episodic Other nutritional; endocrine; and metabolic disorders (2 sources) Body mass index 25-29 - overweight; Translations: [Body mass index (BMI) 26.0-26.9, adult] Episodic Other screening for suspected conditions (not mental disorders or infectious disease) (7 sources) Encounter for screening mammogram for malignant [...] Name Value Interpretation Reference Range Facil ity Office Visiton 10-09-2024 Follow-up visit [id number] Qi Arteaga 1955 F Date Provider Department Center 10/09/2024 MYNOR FINN RAEANN [place] [facility] Family History Problem Relation Age of Onset Coronary artery disease Mother Family Status - Relation Status Age at Mother Level of Service:94066 [place] OFFICE/OUTPATIENT ESTABLISHED LOW MDM 20 MIN Normal [facility] 36on 09-20-2024 36 Regarding echo result from 08/15/2024: NIMA Sagastume MA Please let her know her ECHO [...] nuclear treadmill stress test. Order fax[facility] to [facility]. I asked patient to call me to reschedule her apt with Dr. Story if stress test cannot be completed prior to that. She verbalized understanding. Normal [facility] CBC AUTO DIFFon 04-02-2022 BASO # 0.1 103/ul Normal 0.0-0.1 [facility] Comment on above: Performed By: #### C BC #### [facility] [address] [address] [address] Berenice Sanders Basophils/100 WBC (Bld) 1.6 % Normal 0.2-2.0 [facility] Comment on above: Performed By: #### C BC #### [facility] [address] [address] [address] Berenice Sanders EO # 0.2 103/ul Normal 0.0-0.7 [facility] Comment on above: Performed By: #### C BC #### [facility] [address] [place] [address] Dr. Berenice Sanders Eosinophils/100 WBC (Bld) 5.1 % Normal 0.9-7.0 [facility] Comment on above: Performed By: #### C BC #### [facility] [address] [place] [address] Dr. Berenice Sanders Erythrocyte distribution width (RBC) [Ratio] 12.9 % Normal 11.0-15.0 [facility] Comment on above: Performed By: #### C BC #### [facility] [address] [place] [address] Dr. Berenice Sanders Hematocrit (Bld) [Volume fraction] 41.7 % Normal 36.0-48.0 [facility] Comment on above: Performed By: #### C BC #### [facility] [address] [place] [address] Dr. Berenice Sanders Hemoglobin (Bld) [Mass/Vol] 13.5 g/dL Normal 12.0-16.0 [facility] Comment on above: Performed By: #### C BC #### [facility] [address] [place] [address] Dr. Berenice Sanders IG # 0.01 10e3/ul Normal 0.00-0.03 [facility] Comment on above: Performed By: #### C BC #### [facility] [address] [place] [address] Dr. Berenice Sanders IG % 0.2 % Normal 0.0-0.5 [facility] Comment on above: Performed By: #### C BC #### [facility] [address] [place] [address] Dr. Berenice Sanders LYMPH # 1.9 103/ul Normal 1.2-3.8 [facility] Comment on above: Performed By: #### C BC #### [facility] [address] [place] [address] Dr. Berenice Sanders Lymphocytes/100 WBC (Bld) 42.9 % Normal 20.5-60.0 [facility] Comment on above: Performed By: #### C BC #### [facility] [address] [place] [address] Dr. Berenice Sanders MANUAL DIFF REQ NO Normal [facility] Comment on above: Performed By: #### C BC #### [facility] [address] [place] [address] Dr. Berenice Sanders MCH (RBC) [Entitic mass] 30.4 pg Normal 26.7-34.0 [facility] Comment on above: Performed By: #### C BC #### [facility] [address] [place] [address] Dr. Berenice Sanders MCHC (RBC) [Mass/Vol] 32.4 g/dL Normal 29.9-35.2 [facility] Comment on above: Performed By: #### C BC #### [facility] [address] [place] [address] Dr. Berenice Sanders MCV (RBC) [Entitic vol] 93.9 fL Normal 81.0-99.0 [facility] Comment on above: Performed By: #### C BC #### [facility] [address] [place] [address] Dr. Berenice Sanders MONO # 0.4 103/ul Normal 0.3-0.8 [facility] Comment on above: Performed By: #### C BC #### [facility] [address] [place] [address] Dr. Berenice Sanders Monocytes/100 WBC (Bld) 7.8 % Normal 1.7-12.0 [facility] Comment on above: Performed By: #### C BC #### [facility] [address] [address] [address] Berenice Sanders NEUT # 1.9 103/ul Normal 1.4-6.5 [facility] Comment on above: Performed By: #### C BC #### [facility] [address] [address] [address] Berenice Sanders Neutrophils/100 WBC (Bld) 42.4 % Critically low 43.0-75.0 [facility] Comment on above: Performed By: #### C BC #### [facility] [address] [place] [address] Dr. Berenice Sanders Platelet mean volume (Bld) [Entitic vol] 9.8 fL Normal 9.5-13.5 [facility] Comment on above: Performed By: #### C BC #### [facility] [address] [place] [address] Dr. Berenice Sanders PLT 268 103/ul Normal 150-450 [facility] Comment on above: Performed By: #### C BC #### [facility] [address] [place] [address] Dr. Berenice Sanders RBC 4.44 106/ul Normal 4.20-5.40 [facility] Comment on above: Performed By: #### C BC #### [facility] [address] [place] [address] Dr. Berenice Sanders WBC 4.5 103/ul Normal 4.0-11.0 [facility] Comment on above: Performed By: #### C BC #### [facility] [address] [place] [address] Dr. Berenice Sanders LIPID PROFILEon 04-02-2022 CHOL-HDL RATIO NORM SEE BELOW Normal [facility] Comment on above: Result Comment: 3.3 - 4.4 LOW RISK 4.4 - 7.1 AVERAGE RISK 7.1 - 11.0 MODERATE RISK >11.0 HIGH RISK Performed By: #### C MP, LIPID #### [facility] [address] [place] [address] Dr. Berenice Sanders Cholesterol [Mass/Vol] 140 mg/dL Normal <=200 [facility] Comment on above: Performed By: #### C MP, LIPID #### [facility] [address] [address] [address] Berenice Sanders Cholesterol in HDL [Mass/Vol] 43 mg/dL Normal 40-60 [facility] Comment on above: Performed By: #### C MP, LIPID #### [facility] [address] [address] [address] Berenice Sanders Cholesterol in LDL [Mass/Vol] 78.0 mg/dL Normal [facility] Comment on above: Performed By: #### C MP, LIPID #### [facility] [address] [address] [address] Berenice Sanders Cholesterol.total/ Cholesterol in HDL [Mass ratio] 3.3 {ratio} Normal [facility] Comment on above: Performed By: #### C MP, LIPID #### [facility] [address] [address] [address] Berenice Sanders HDL NORMAL > or = 60 mg/dl - LOW CARDIOVASCULAR RISK <40 mg/dl - HIGH CARDIOVASCULAR RISK Normal [facility] Comment on above: Performed By: #### C MP, LIPID #### [facility] [address] [place] [address] Dr. Berenice Sanders LDL CALC NORMAL SEE BELOW Normal [facility] Comment on above: Result Comment: <100 mg/dl OPTIMAL 100 - 129 mg/dl NEAR OR ABOVE OPTIMAL 130 - 159 mg/dl BORDERLINE HIGH 160 - 189 mg/dl HIGH >190 mg/dl VERY HIGH Performed By: #### C MP, LIPID #### [facility] [address] [place] [address] Dr. Berenice Sanders Triglyceride [Mass/Vol] 95 mg/dL Normal <=150 [facility] Comment on above: Performed By: #### C MP, LIPID #### [facility] [address] [address] [address] Berenice Sanders VLDL CALC 19.0 mg/dL Normal [facility] Comment on above: Performed By: #### C MP, LIPID #### [facility] [address] [address] [address] Berenice Sanders PROF 14(COMP METB)on 022 Albumin [Mass/Vol] 4.0 g/dL Normal 3.4-5.0 [facility] Comment on above: Performed By: #### C MP, LIPID #### [facility] [address] [address] [address] Berenice Sanders Albumin/Globulin [Mass ratio] 1.3 {ratio} Normal [facility] Comment on above: Performed By: #### C MP, LIPID #### [facility] [address] [place] [address] Dr. Berenice Sanders ALP [Catalytic activity/Vol] 73 U/L Normal 46-116 [facility] Comment on above: Performed By: #### C MP, LIPID #### [facility] [address] [place] [address] Dr. Berenice Sanders ALT [Catalytic activity/Vol] 37 U/L Normal 14-59 [facility] Comment on above: Performed By: #### C MP, LIPID #### [facility] [address] [place] [address] Dr. Berenice Sanders Anion gap [Moles/Vol] 15.3 mmol/L Normal [facility] Comment on above: Performed By: #### C MP, LIPID #### [facility] [address] [place] [address] Dr. Berenice Sanders AST [Catalytic activity/Vol] 19 U/L Normal 15-37 [facility] Comment on above: Performed By: #### C MP, LIPID #### [facility] [address] [address] [address] Berenice Sanders Bilirubin [Mass/Vol] 0.6 mg/dL Normal 0.2-1.0 [facility] Comment on above: Performed By: #### C MP, LIPID #### [facility] [address] [address] [address] Berenice Sanders Calcium [Mass/Vol] 8.6 mg/dL Normal 8.5-10.1 [facility] Comment on above: Performed By: #### C MP, LIPID #### [facility] [address] [place] [address] Dr. Berenice Sanders Chloride [Moles/Vol] 105 mmol/L Normal 98-107 [facility] Comment on above: Performed By: #### C MP, LIPID #### [facility] [address] [address] [address] Berenice Sanders CO2 [Moles/Vol] 24.6 mmol/L Normal 21.0-32.0 [facility] Comment on above: Performed By: #### C MP, LIPID #### [facility] [address] [address] [address] Berenice Sanders Creatinine [Mass/Vol] 1.00 mg/dL Normal 0.55-1.02 [facility] Comment on above: Performed By: #### C MP, LIPID #### [facility] [address] [place] [address] Dr. Berenice Sanders EGFR-AF IVORIAN >60 Normal >=60 [facility] Comment on above: Performed By: #### C MP, LIPID #### [facility] [address] [place] [address] Dr. Berenice Sanders EGFR-NON AF IVORIAN 55 mL/min/1.73m2 Critically low >=60 [facility] Comment on above: Performed By: #### C MP, LIPID #### [facility] [address] [place] [address] Dr. Berenice Sanders Globulin (S) [Mass/Vol] 3.0 g/dL Normal [facility] Comment on above: Performed By: #### C MP, LIPID #### [facility] [address] [address] [address] Berenice Sanders Glucose [Mass/Vol] 108 mg/dL Critically high 74-106 [facility] Comment on above: Performed By: #### C MP, LIPID #### [facility] [address] [address] [address] Berenice Sanders Potassium [Moles/Vol] 4.2 mmol/L Normal 3.5-5.1 [facility] Comment on above: Performed By: #### C MP, LIPID #### [facility] [address] [place] [address] Dr. Berenice Sanders Protein [Mass/Vol] 7.0 g/dL Normal 6.4-8.2 [facility] Comment on above: Performed By: #### C MP, LIPID #### [facility] [address] [place] [address] Dr. Berenice Sanders Sodium [Moles/Vol] 140 mmol/L Normal 136-145 [facility] Comment on above: Performed By: #### C MP, LIPID #### [facility] [address] [place] [address] Dr. Berenice Sanders Urea nitrogen [Mass/Vol] 17.0 mg/dL Normal 7.0-18.0 [facility] Comment on above: Performed By: #### C MP, LIPID #### [facility] [address] [place] [address] Dr. Berenice Sanders Urea nitrogen/Creatinin e [Mass ratio] 17.0 mg/mg Normal [facility] Comment on above: Performed By: #### C MP, LIPID #### [facility] [address] [place] [address] Dr. Berenice Sanders LIPID PROFILEon 09-28-2021 CHOL-HDL RATIO NORM SEE BELOW Normal [facility] Comment on above: Result Comment: 3.3 - 4.4 LOW RISK 4.4 - 7.1 AVERAGE RISK 7.1 - 11.0 MODERATE RISK >11.0 HIGH RISK Performed By: #### L IPID #### [facility] [address] [place] [address] Dr. Berenice Sanders Cholesterol [Mass/Vol] 144 mg/dL Normal <=200 [facility] Comment on above: Performed By: #### L IPID #### [facility] [address] [place] [address] Dr. Berenice Sanders Cholesterol in HDL [Mass/Vol] 48 mg/dL Normal [facility] Comment on above: Performed By: #### L IPID #### [facility] [address] [place] [address] Dr. Berenice Sanders Cholesterol in LDL [Mass/Vol] 63.0 mg/dL Normal [facility] Comment on above: Performed By: #### L IPID #### [facility] [address] [address] [address] Berenice Sanders Cholesterol.total/ Cholesterol in HDL [Mass ratio] 3.0 {ratio} Normal [facility] Comment on above: Performed By: #### L IPID #### [facility] [address] [address] [address] Berenice Sanders HDL NORMAL > or = 60 mg/dl - LOW CARDIOVASCULAR RISK <40 mg/dl - HIGH CARDIOVASCULAR RISK Normal [facility] Comment on above: Performed By: #### L IPID #### [facility] [address] [address] [address] Berenice Sanders LDL CALC NORMAL SEE BELOW Normal [facility] Comment on above: Result Comment: <100 mg/dl OPTIMAL 100 - 129 mg/dl NEAR OR ABOVE OPTIMAL 130 - 159 mg/dl BORDERLINE HIGH 160 - 189 mg/dl HIGH >190 mg/dl VERY HIGH Performed By: #### L IPID #### [facility] [address] [address] [address] Berenice Sanders Triglyceride [Mass/Vol] 165 mg/dL Critically high <=150 [facility] Comment on above: Performed By: #### L IPID #### [facility] [address] [address] [address] Berenice Sanders VLDL CALC 33.0 mg/dL Normal [facility] Comment on above: Performed By: #### L IPID #### [facility] [address] [address] [address] Berenice Sanders Vital Signs Date Time Vital Sign Value Performing Clinician Facility 02-25-2025 15: Body height 167.64 cm Aliza Quiros MD Work Phone: [facility] 02-25-2025 15:13 Body mass index (BMI) [Ratio] 27.2 kg/m2 Aliza Quiros MD Work Phone: [facility] 02-25-2025 15: Body weight 76.65 kg Aliza Quiros MD Work Phone: [facility] 02-25-2025 15:13-0400 Diastolic blood pressure 90 mm[Hg] Aliza Quiros MD Work Phone: [facility] 02-25-2025 15:13-0400 Heart rate 60 /min Aliza Quiros MD Work Phone: [facility] 02-25-2025 15:13-0400 Respiratory rate 12 /min Aliza Quiros MD Work Phone: [facility] 02-25-2025 15:13-0400 SaO2% (BldA) [Mass fraction] 96 % Aliza Quiros MD Work Phone: [facility] 02-25-2025 15:13-0400 Systolic blood pressure 145 mm[Hg] Aliza Quiros MD Work Phone: [facility] 02-17-2024 08:30-0400 Body height 165.1 cm [facility] 02-17-2024 08:30-0400 Body mass index (BMI) [Ratio] 27.3 kg/m2 [facility] 02-17-2024 08:30-0400 Body weight 74.38 kg [facility] 02-17-2024 08:30-0400 Diastolic blood pressure 83 mm[Hg] [facility] 02-17-2024 08:30-0400 Heart rate 81 /min [facility] 02-17-2024 08:30-0400 Systolic blood pressure 153 mm[Hg] [facility] 02-15-2023 08:30-0400 Body height 165.74 cm Aliza Quiros Other [facility] Other 02-15-2023 08:30-0400 Body mass index (BMI) [Ratio] 26.91 kg/m2 Aliza Quiros Other [employer] Other 02-15-2023 08:30-0400 Body weight 73.94 kg Aliza Quiros Other [employer] Other 02-15-2023 08:30-0400 Diastolic blood pressure 86 mm[Hg] Aliza Quiros Other [employer] Other 02-15-2023 08:30-0400 Systolic blood pressure 129 mm[Hg] Aliza Quiros Other [employer] Other Encounters Encounter Date Encounter Type Care Provider Facility Start: 02-25-2025 End: 02-25-2025 ambulatory Aliza Quiros MD Work Phone: [facility] Work Phone: Start: 02-25-2025 End: 02-25-2025 Patient encounter procedure Aliza Quiros MD -[facility] Work Phone: Start: 10-09-2024 End: 10-09-2024 ambulatory [facility] Start: 02-17-2024 End: 02-17-2024 ambulatory [facility] Work Phone: Start: 02-17-2024 End: 02-17-2024 Patient encounter procedure [facility] Work Phone: Start: 04-05-2023 End: 04-05-2023 ambulatory Aliza Quiros Other [employer] Other Start: 04-05-2023 Telephone encounter Aliza Quiros [facility] Start: 03-29-2023 End: 03-29-2023 ambulatory Aliza Quiros Other [employer] Other Start: 03-29-2023 Telephone encounter Aliza Quiros [facility] Start: 02-15-2023 End: 02-15-2023 ambulatory Aliza Quiros Other [employer] Other Start: 02-15-2023 Patient encounter procedure Aliza Quiros [facility] Start: 04-02-2022 End: 04-03-[address] ALIZA QUIROS Facility:[facility] Start: 02-12-2022 Adult health examination Gayla Quiros Other [facility] Other Start: 02-12-2022 Gynecological examination normal Aliza Quiros Other [facility] Other Start: 09-28-2021 End: 09-29-[address] ALIZA QUIROS Facility:[facility] Start: 10-04-2017 End: 10-05-2017 Ambulatory DEFAULT PHYSICIAN Facility:[facility] Procedures Date Procedure Procedure Detail Performing Clinician Start: 01-12-2016 Screening mammography M isidro Quiros Other Start: 01-31-2014 General examination of patient Aliza Quiros Other Screening for malign ant neoplasm of breast Aliza Chula Other Plan of Treatment Date Care Activity Detail Author Comprehensive metabo lic 1999 panel - Serum or Plasma [facility] Comprehensive metabo lic 2000 panel - Serum or Plasma [facility] MG Breast - bilatera l Screening [facility] Patient Education Exercises (man euvers) for benign paroxysmal positional vertigo [facility] Work Phone: [facility] Immunizations Immunization Date Immunization Notes Care Provider Fa cili 04-06-2022 influenza virus vaccine, split virus (incl. purified surface antigen) Aliza Chula Other [facility] Other 04-06-2022 influenza virus vaccine, unspecified formulation [facility] 04-06-2022 Prevnar 20 Aliza Chula Other [facility] 08-06-2021 influenza virus vaccine, split virus (incl. purified surface antigen) Alizaalberto Quiros Other [facility] Other 08-06-2021 influenza virus vaccine, unspecified formulation [facility] 07-29-2020 pneumococcal polysaccharide vaccine, 23 valent Aliza Quiros Other [facility] 04-15-2020 influenza virus vaccine, split virus (incl. purified surface antigen) Aliza Quiros Other [facility] Other 04-15-2020 influenza virus vaccine, unspecified formulation [facility] 01-17-2017 pneumococcal conjuga te vaccine, 13 valent Aliza Chula Other [facility] 01-17-2017 pneumococcal Conjuga te, unspecified formulation; Translations: [Need for prophylactic vaccination against Streptococcus pneumoniae (pneumococcus)] Aliza Quiros Other [facility] Other Payers Date Payer Category Payer Medicare [id number] 1961 Medicare [id number] 1961 Unknown [id number] 1955 Unknown [id number] 1955 Unknown [id number] Unknown Social History Date Type Detail Facility Unknown if ever smoked [facility] Other Sex Assigned At Sex Assigned At Bir th [facility] Other Start: 1955 Sex Assigned At Female F [facility] Start: 02-25-2025 Tobacco smoking status NHIS Never smoked tobacco (finding) [facility] Sex Female (finding) [facility] Progress note 10-09-2024 Note Date & Type Note Facility 10-09-2024 Note Cardiovascular Medic ine [facility] SUBJECTIVE Patient here for 1 year follow up CAD, hypertension, and hyperlipidemia. Had routine labs with lipid panel in Mar 2024. After her echo in Aug 2024, Sherie Acevedo CNP ordered stress test. Patient is completely asymptomatic. Says her HR is usually between 95-100. Qi Arteaga is a 69 y.o. female here for follow-up. HPI PMHx: [...] orthopnea, PND, LE edema, dizziness/LH, palpitations, syncope. Update 10/09/2024: Doing very well No symptoms Very anxious regarding the results of her testing Patient Active Problem List Diagnosis Aortic valve [...] use: Yes Comment: occasional No Known Allergies ROS OBJECTIVE BP (!) 140/98 (BP Location: Left arm, Patient Position: Sitting) Pulse 109 Ht 1.676 m (5' 6 ) Wt 78.5 kg (173 lb) SpO2 95% BMI 27.92 kg/m??? Medications: Current Outpatient Medications: aspirin 81 mg [...] weeks. 5. Phase 2 cardiac rehabilitation in [place]. 6. Follow up with me in the [facility] in a month. 7. Follow up with Dr. Quiros as scheduled. Echocardiogram 08/15/2024: Global left ventricular systolic functi (more content not included)... [facility] Evaluation note 02-15-2023 Note Date & [...] Screening for colon cancer (ICD-10 - Z12.11) [employer] Other Evaluation note Note Date & Type Note Facility Evaluation note No Information [facility] Other Evaluation note Note Date & Type Note Facility Evaluation note Diagnosis Onset Date CAD in [place] artery acute HTN (hypertension), benign a cute Hyperlipidemia acute Screening mammogram for breast cancer acute [facility] Work Phone: Evaluation note Note Date & Type Note Facility Evaluation note Diagnosis Onset Date Resolution CAD in [place] artery acute February 25, 2025 2:48pm HTN (hypertension), benign acute February 25, 2025 2:48pm Hyperlipidemia acute February 25, 2025 2:48pm [facility] Work Phone: History general Narrative - Reported Note Date & Type Note Facility History general Narrative - Reported Type Medical History CAD in [place] artery Medical History Elevated blood press ure (not hypertension) Medical History Hyperlipidemia Medical History Lumbar pain Surgical History TONSILLECTOMY AND ADENOIDECTOMY 2007 Surgical History ENDOMETRIAL ABLATION 2004 Surgical History D&C 2003 Surgical History STENT LAD 2012 Hospitalization History SEE SURGICAL HX [employer] Other Reason for referral (narrative) Note Date & Type Note Facility Reason for referral (narrative) No reason for referral information available [facility] Work Phone: Summary Purpose Family History Relationship Condition Age at Onset Recorded Date/T tasia daughter Hypertension Unknown father Arthritis Unknown Unknown mother Unknown Diabetes mellitus Unknown Advance Directives Advance Directive Response Recorded Date/ Time Advance Directives No February 16 8:24am Chief Complaint and Reason for Visit Chief Complaint wellness Reason for Visit CAD in [place] artery HTN (hypertension), benign Hyperlipidemia Screening mammogram for breast cancer Chief Complaint Admit Date wellness February 25, 2025 2:48 pm Reason for Visit Admit Date CAD in [place] artery February 25, 2025 2:4 8pm HTN (hypertension), benign February 25 2:48pm Hyperlipidemia February 25, 2025 2:48 pm Additional Source Comments INFORMATION SOURCE (unrecogn ized section and content) DATE CREATED AUTHOR 01/27/2018 [facility] DATE CREATED AUTHOR AUTHOR'S ORGANIZ ATION 04/04/2022 [facility] DATE CREATED AUTHOR AUTHOR'S ORGANIZ ATION 10/11/2024 [facility] REASON FOR VISIT (unrecogniz ed section and content) [facility] Care Teams (unrecognized sec tion and content) Team Status: Active Member Role Status Dates Aliza Quiros MD Primary Care Provider Active Team Status: Inactive Member Role Status Dates Aliza Quiros MD Primary Care Provide r, Attending Provider Active Start: February 17, 2024 End: February 17, 2024 Team Status: Inactive Member Role Status Dates Aliza Quiros MD Primary Care Provider Active Start: February 25, 2025 End: February 25, 2025 Aliza Quiros MD Attending Provider Active St art: February 25, 2025 End: February 25, 2025 Goals (unrecognized section and content) Goals may [...] BE BASED ON THE PRIMARY CLINICAL RECORDS. [email or web address] provides no warranty or guarantee of the accuracy or completeness of information in this document.
[2025-04-03 07:14] LABS: Hematocrit 43.9 % (36.0-48.0); Hemoglobin 14.6 g/dL (12.0-16.0); Immature Granulocytes Abs Auto 0.01 10^3/uL (0.00-0.03); Immature Granulocytes Pct Auto 0.2 % (0.0-0.5); Lymphocytes Absolute Auto 1.9 10^3/uL (1.2-3.8); Mean Corpuscular HGB Conc 33.3 g/dL (29.9-35.2); Mean Corpuscular Hemoglobin 31.0 pg (26.7-34.0); Mean Corpuscular Volume 93.2 fL (81.0-99.0); Platelet Count 301 10^3/uL (150-450); Red Blood Count 4.71 10^6/uL (4.20-5.40); White Blood Count 5.8 10^3/uL (4.0-11.0)
[2025-04-03 07:24] LABS: Microalbum Creatinine Ratio Ur 15.2 mg/g (0.0-29.9)
[2025-04-03 07:25] LABS: Alanine Aminotransferase 43 U/L (14-59); Albumin Globulin Ratio 1.2; Albumin Level 4.1 g/dL (3.4-5.0); Alkaline Phosphatase 84 U/L (46-116); Anion Gap 11.1; Aspartate Amino Transferase 22 U/L (15-37); Blood Urea Nitrogen 13.0 mg/dL (7.0-18.0); Calcium 8.9 mg/dL (8.5-10.1); Carbon Dioxide 29.2 mmol/L (21.0-32.0); Chloride 106 mmol/L (98-107); Cholesterol 148 mg/dL (<=200); Estimated GFR (African America >60 (>=60 mL/min/1.73m^2); Estimated GFR (Non-African Ame 59 (>=60 mL/min/1.73m^2); Globulin 3.5 g/dL; Glucose 109 mg/dL (74-106); HDL Cholesterol 47 mg/dL (40-60); Potassium 4.3 mmol/L (3.5-5.1); Sodium 142 mmol/L (136-145); Total Protein 7.6 g/dL (6.4-8.2); Triglycerides 83 mg/dL (<=150); VLDL CHOLESTEROL 16.6 mg/dL
== END 2025-04-03 06:51 | disposition home or self-care (01) ==
LOC: LAB 06:53
PROVIDERS: PCP Family Medicine; Visit Provider Family Medicine
DX: I25.10 Atherosclerotic heart disease of native coronary artery without angina pectoris (principal); I10 Essential (primary) hypertension; E78.5 Hyperlipidemia, unspecified
CPT/HCPCS: 80053; 80061; 82043; 82570; 85025